=== PATIENT | male | born 1995 | race Caucasian/White ===

== ENCOUNTER 2018-11-30 01:36 | Emergency (ER) | payer BC ==
[~2018-11-30] VITALS: Ht 170.2 cm; Wt 92.1 kg
[2018-11-30 01:42] VITALS: Ht 170.2 cm; Wt 92.1 kg
[2018-11-30 03:12] VITALS: BP 118/70
== END 2018-11-30 03:00 | disposition home or self-care (01) ==
LOC: ED 01:36
DX: S05.02XA Injury of conjunctiva and corneal abrasion without foreign body, left eye, initial encounter (principal); S05.01XA Injury of conjunctiva and corneal abrasion without foreign body, right eye, initial encounter; Z98.890 Other specified postprocedural states; W25.XXXA Contact with sharp glass, initial encounter; Y93.89 Activity, other specified; Y92.89 Other specified places as the place of occurrence of the external cause; Y99.8 Other external cause status
CPT/HCPCS: 90715; J1885